=== PATIENT | female | born 1985 | race Caucasian/White ===

== ENCOUNTER → 2023-07-14 10:37 | Outpatient (CLI) | payer BC, SELFPAY ==
--- NOTE | ~2023-07-14 | MR_ITS ---
EXAMINATION: MR ankle LT wo con DATE: 07/14/2023 11:24 INDICATION: Left ankle pain. Peroneal tendinitis. TECHNIQUE: Magnetic resonance imaging (MRI) of the left ankle was performed without intravenous contr ast. Sequences included sagittal PD-weighted FS FSE, sagittal PD-weighted FSE, coronal PD-weighted FS FSE, coronal PD-weighted FSE, axial PD-weighted FS FSE, and axial PD-weighted FSE. COMPARISON: None. FINDINGS: Medial ankle ligaments: The superficial and deep components of the deltoid ligament are normal. Lateral ankle ligaments: There are changes of prior sprains of anterior talofibular ligament and anterior tibiofibular ligamen t characterized by increased signal intensity. Calcaneofibular ligament, posterior talofibular ligame nt, and posterior tibiofibular ligament are normal. Tendons: The anterior and medial tendons are normal. Peroneus brevis tendon is normal. There is mild peroneus longus tendinopathy.. Achilles tendon is normal. There is a skin marker lateral to calcaneus. Plantar fascia: Normal. Bones/other: Talar dome is normal. Fluid: There are small ankle and subtalar joint effusions. IMPRESSION: 1. Mild peroneus longus tendinopathy. Reviewed, dictated and finalized at location A.
== END ==
PROVIDERS: PCP Internal Medicine; Visit Provider Podiatrist Foot & Ankle Surgery
DX: M76.62 Achilles tendinitis, left leg (principal)
CPT/HCPCS: 73721

== ENCOUNTER 2024-10-01 11:44 | Emergency (ER) | payer BC, SELFPAY ==
[2024-10-01 11:55] VITALS: BP 120/79; PULSE 105; RESP 18; TEMP 36.5; O2SAT 100
[2024-10-01 12:41] LABS: EDCOVIDSCREEN Negative (Negative); EDINFLUASCREEN Negative (Negative); EDINFLUBSCREEN Negative (Negative); EDSTREPNEGPOS1 Negative (Negative)
--- NOTE | 2024-10-01 12:45 | ED.URI ---
HPI - URI/Sore Throat General Chief Complaint: Upper Respiratory Infection Stated Complaint: Sore Throat/Runny Nose History of Present Illness HPI Narrative: Patient presents with cough runny nose nasal congestion and sore throat. No fever no body aches no trouble swallowing no drooling. Related Data Home Medications Medication Instructions Recorded Confirmed dextroamphetamine-amphetamine ER PO 10/01/24 50 mg capsule,3 bead,ext release 24hr ethynodiol diacetate-ethinyl tablet 10/01/24 estradiol 1 mg-50 mcg tablet (Kelnor) famotidine 20 mg tablet mg 10/01/24 fluvoxamine 100 mg mg PO 10/01/24 capsule,extended release 24 hr galcanezumab-gnlm 120 mg/mL mg subcut 10/01/24 subcutaneous pen injector (Emgality Pen) montelukast 10 mg tablet mg 10/01/24 nortriptyline 10 mg capsule mg 10/01/24 pantoprazole 40 mg tablet,delayed mg PO 10/01/24 release rizatriptan 10 mg tablet mg 10/01/24 trazodone 100 mg tablet mg 10/01/24 trazodone 150 mg tablet mg 10/01/24 Allergies Allergy/AdvReac Type Severity Reaction Status Date / Time paroxetine [From Paxil] Allergy Anaphylaxis Verified 10/01/24 12:48 Penicillins Allergy Anaphylaxis Verified 10/01/24 12:47 Review of Systems Review of Systems: CONSTITUTIONAL: Denies chills, or sweats. Reports fever and generalized body aches EYES: Denies visual changes, redness, or discharge. ENT: Denies otalgia. Reports nasal congestion runny nose and sore throat CARDIOVASCULAR: Denies chest pain, palpitations, or edema. RESPIRATORY: Denies dyspnea. Reports occasional cough GASTROINTESTINAL: Denies abdominal pain, nausea, vomiting, or diarrhea. GENITOURINARY: Denies dysuria or hematuria. SKIN: Denies rash or itching. MUSCULOSKELETAL: Denies back pain, joint pain, or myalgia. Reports generalized body aches NEUROLOGIC: Denies headache, numbness, or weakness. PSYCHIATRIC: Denies anxiety or depression. PMFSH Comments At time of signature, agree with nursing past medical, surgical, social and family history. There is no relevant family history pertinent to the presenting complaint Exam Narrative: The patient is a well-developed, well-nourished in no acute distress. SKIN: Skin is warm and dry without erythema, swelling or exudate. There is good turgor. No tenting. HEAD: Atraumatic. Normocephalic. No temporal or scalp tenderness. EYES: Moist and bright. Sclera and conjunctivae normal. No discharge. PERRLA. Extraocular motions intact. Gross visual acuity intact. EARS: Pinna is normal shape and contour. Clear external auditory canals. TM pearly weaver with good cone of light, no erythema or suppuration. Bilateral cerumen noted no gross hearing deficit. NOSE: pink, moist mucosa with good air movement. Clear rhinorrhea without nasal flaring. Septum midline. Mouth: moist mucous membranes. THROAT; mild erythema noted to posterior oropharynx with moderate postnasal drainage. Without exudate or ulceration.. Uvula midline. Normal movement of soft palate. NECK: Supple and nontender with full range of motion without discomfort. No meningeal signs. LUNGS: Equal and bilateral breath sounds without wheezes, rales or rhonchi. CHEST: The chest wall is without retractions or use of accessory muscles. HEART: Has a regular rate and rhythm without murmur, gallops, click or rub. ABDOMEN: Soft, nontender with positive active bowel sounds. No rebound tenderness. EXTREMITIES: Without cyanosis, clubbing or edema. Equal 2+ distal pulses and 2 second capillary refill noted. NEUROLOGIC: alert, active, . The patient moves all extremities with normal muscle strength. Normal muscle tone is noted. Normal coordination is noted. NO focal neurological findings noted. Course Course Level of Care: Express Care Visit Vital Signs Vital signs: Vital Signs Temperature 36.5 C 10/01/24 11:55 Pulse Rate 105 H 10/01/24 11:55 Respiratory Rate 18 10/01/24 11:55 Blood Pressure 120/79 10/01/24 11:55 Pulse Oximetry 100 10/01/24 11:55 Oxygen Delivery Room Air 10/01/24 11:55 Temperature 36.5 C 10/01/24 11:55 Pulse Rate 105 H 10/01/24 11:55 Respiratory Rate 18 10/01/24 11:55 Blood Pressure 120/79 10/01/24 11:55 Pulse Oximetry 100 10/01/24 11:55 Oxygen Delivery Room Air 10/01/24 11:55 MDM - URI/Sore Throat Lab Data Labs: Lab Results 10/01/24 Range/Units 12:40 POC Influenza A Ag Negative (Negative) POC Influenza B Ag Negative (Negative) POC SARS CoV-2 Ag Negative (Negative) POC Grp A Strep Screen Negative (Negative) Discharge Plan Discharge Clinical Impression: Upper respiratory infection, Pharyngitis Patient Disposition: Home, Self-Care Condition: Stable Instructions: Antibiotic Form Additional Instructions: *Throw away your current toothbrush and begin using a new toothbrush in 48 hours in order to prevent re-infection. If anyone else's toothbrush is stored near yours, they should also throw away their current toothbrush and begin using a new one. *Sanitize all reusable water bottles. *Do not share items with others. *Wash your hands often. Supportive care/Soothing measures/Pain relief: *Avoid cigarette smoke (including secondhand smoke) *Avoid acidic foods and beverages *Eat a soft diet for the next 3-4 days *Salt water gargles may alleviate some of the throat discomfort. Most recipes call for ? to ? teaspoon of salt per 8 ounces (approximately 240 mL) of warm water. *You can take tylenol or ibuprofen per the package instructions for pain/fever. *Sipping cold or warm beverages (eg, tea with honey or lemon) *Eat cold or frozen desserts (eg, ice cream, popsicles) *Sucking on ice *Sucking on hard candy Viruses are everywhere and can spread like wildfire. Sx can last up to 3-4 weeks. Treatment is aimed toward your specific symptoms. You must treat your symptoms in order to feel better while the virus runs it's course. Increase fluids especially water. Do not share items with others. You can take Tylenol or ibuprofen per the package instructions for pain/fever. Wash your hands as often as possible. Purchase and begin using an over the counter antihistamine/decongestant combo such as Zyrtec D, Francesca D, Claritin D as well as Flonase nasal spray per the package instructions. Salt water gargles may alleviate some of your throat discomfort. Go to the ER if your symptoms become worse of if ANY new symptoms develop Prescriptions: New prednisone 20 mg tablet 40 mg PO DAILY 5 Days Qty: 10 0RF No Action ethynodiol diac-eth estradiol [Urielr (28)] 1-50 mg-mcg tablet rizatriptan 10 mg tablet famotidine 20 mg tablet trazodone 100 mg tablet pantoprazole 40 mg tablet,delayed release (DR/EC) PO nortriptyline 10 mg capsule trazodone 150 mg tablet montelukast 10 mg tablet fluvoxamine 100 mg capsule,extended release 24hr PO dextroamphetamine-amphetamine 50 mg capsule, ER multiphase 24 hr PO Emgality Pen 120 mg/mL pen injector SUBCUT Follow-up/Referrals: Phani,Yasmani Rodríguez MD [Primary Care Provider] -
== END 2024-10-01 12:55 | disposition home or self-care (01) ==
PROVIDERS: Emergency Provider Nurse Practitioner Family; PCP Internal Medicine
DX: J06.9 Acute upper respiratory infection, unspecified (principal); Z79.899 Other long term (current) drug therapy; Z20.822 Contact with and (suspected) exposure to COVID-19
CPT/HCPCS: 87081; 87426; 87804; 87880; 99213; G0463

== ENCOUNTER 2024-10-07 19:00 | Emergency (ER) | payer BC, SELFPAY ==
[2024-10-07 19:10] VITALS: BP 125/85; PULSE 100; RESP 16; TEMP 36.9; O2SAT 100
--- NOTE | 2024-10-07 19:20 | ED.URI ---
HPI - URI/Sore Throat General Chief Complaint: Upper Respiratory Infection Stated Complaint: Runny Nose/Cough History of Present Illness HPI Narrative: 39 y/o female presented for c/o runny nose and sinus pressure for one week. Endorses mild cough. Pt was seen in the clinic 6 days ago for the same complaint, tested negative for flu covid and strep. Pt was prescribed a steroid at that time. States her symptoms improved briefly. Also takes antihistamines daily. Pt also reports mild dysuria. Onset today. denies hematuria, nausea, vomiting, abdominal pain, flank pain, constipation, diarrhea, fevers or chills. Related Data Home Medications Medication Instructions Recorded Confirmed Botox 10/01/24 Pataday 10/01/24 10/01/24 dextroamphetamine-amphetamine ER PO DIRECTED 10/01/24 50 mg capsule,3 bead,ext release 24hr epinephrine HCl 10/01/24 ethynodiol diacetate-ethinyl tablet 10/01/24 estradiol 1 mg-50 mcg tablet (Kelnor) famotidine 20 mg tablet mg 10/01/24 fluvoxamine 100 mg mg PO 10/01/24 capsule,extended release 24 hr galcanezumab-gnlm 120 mg/mL mg subcut 10/01/24 subcutaneous pen injector (Emgality Pen) montelukast 10 mg tablet mg 10/01/24 nortriptyline 10 mg capsule mg 10/01/24 pantoprazole 40 mg tablet,delayed mg PO 10/01/24 release rizatriptan 10 mg tablet mg 10/01/24 topiramate 100 mg tablet mg 10/01/24 10/01/24 trazodone 100 mg tablet mg 10/01/24 trazodone 150 mg tablet mg 10/01/24 Allergies Allergy/AdvReac Type Severity Reaction Status Date / Time paroxetine [From Paxil] Allergy Anaphylaxis Verified 10/01/24 12:48 Penicillins Allergy Anaphylaxis Verified 10/01/24 12:47 Review of Systems Review of Systems: CONSTITUTIONAL: Denies body aches, fever, chills, or sweats. EYES: Denies visual changes, redness, or discharge. ENT: reports rhinorrhea, congestion, Denies sore throat, otalgia. CARDIOVASCULAR: Denies chest pain, palpitations, or edema. RESPIRATORY: Denies dyspnea. MUSCULOSKELETAL: Denies back pain, joint pain, or myalgia. NEUROLOGIC: Denies headache Exam Narrative: GENERAL: well-appearing, no acute distress. EYES: conjunctivae clear ENT: Mucous membranes moist.Nasal congestion noted. TMs pearly valenzuela with normal light reflex bilaterally; no tragal tenderness. Oropharynx erythematous without lesions. Tonsils not enlarged and without exudate. No drooling, no hoarseness, no trismus, uvula midline. No tripod positioning, hot potato voice, or soft palate swelling. NECK: Supple. No lymphadenopathy CHEST: Clear to auscultation, breath sounds equal. No respiratory distress, speaks in full sentences. HEART: Regular rate and rhythm. No murmur heard. SKIN: Warm, dry, no rash. NEURO: Alert and oriented x3. Course Course Emergency Course: Patient is aware of diagnosis, understands and agrees to treatment plan. Anticipatory guidance given. Patient agrees to follow-up as directed and is aware of reasons to seek care at the emergency department. Portions of this record may have been created with voice recognition software Level of Care: Express Care Visit Vital Signs Vital signs: Vital Signs Temperature 98.4 F 10/07/24 19:10 Pulse Rate 100 10/07/24 19:10 Respiratory Rate 16 10/07/24 19:10 Blood Pressure 125/85 10/07/24 19:10 Pulse Oximetry 100 10/07/24 19:10 Temperature 98.4 F 10/07/24 19:10 Pulse Rate 100 10/07/24 19:10 Respiratory Rate 16 10/07/24 19:10 Blood Pressure 125/85 10/07/24 19:10 Pulse Oximetry 100 10/07/24 19:10 MDM - URI/Sore Throat MDM Narrative Medical decision making narrative: discussed physical exam findings, Advise supportive treatments. Patient is appropriate for outpatient treatment and follow-up. Differential Diagnosis Differential diagnosis: Likely upper respiratory infection, otitis media, sinusitis, viral infection and pharyngitis Discharge Plan Discharge Clinical Impression: Upper respiratory infection Patient Disposition: Home, Self-Care Condition: Stable Instructions: Antibiotic Form, Upper Respiratory Infection (ED) Additional Instructions: Take antibiotic as directed Recommend Flonase spray and saline nasal mist Continue your prescribed antihistamines over the counter Cough syrup may cause drowsiness; avoid driving or take it at night time. Tylenol 1000mg every 8 hours as needed for pain Symptomatic treatment includes: rest, fluids, and increase humidity of the air at home. Follow up with your primary care provider in 1 week. Go to the ER for worsening symptoms or concerns. Prescriptions: New doxycycline hyclate 100 mg tablet 100 mg PO BID 7 Days Qty: 14 0RF No Action ethynodiol diac-eth estradiol [Kelnor (28)] 1-50 mg-mcg tablet rizatriptan 10 mg tablet famotidine 20 mg tablet trazodone 100 mg tablet pantoprazole 40 mg tablet,delayed release (DR/EC) PO nortriptyline 10 mg capsule trazodone 150 mg tablet montelukast 10 mg tablet fluvoxamine 100 mg capsule,extended release 24hr PO dextroamphetamine-amphetamine 50 mg capsule, ER multiphase 24 hr PO DIRECTED Emgality Pen 120 mg/mL pen injector SUBCUT prednisone 20 mg tablet 40 mg PO DAILY 5 Days Qty: 10 0RF topiramate 100 mg tablet Botox Pataday epinephrine HCl Follow-up/Referrals: Phani,Yasmani Rodríguez MD [Primary Care Provider] - Time of Disposition: 19:29
== END 2024-10-07 19:33 | disposition home or self-care (01) ==
PROVIDERS: Emergency Provider Nurse Practitioner Family; PCP Internal Medicine
DX: J06.9 Acute upper respiratory infection, unspecified (principal)
CPT/HCPCS: 99213; G0463